=== PATIENT | female | born 1945 | race Caucasian/White ===

== ENCOUNTER 2021-04-03 12:28 | Emergency (ER) | payer MEDICARE, SELFPAY ==
--- NOTE | 2021-04-03 | ECG_ITS ---
Test Reason : STOKE Blood Pressure : / mmHG Vent. Rate : 052 BPM Atrial Rate : 052 BPM P-R Int : 234 ms QRS Dur : 070 ms QT Int : 432 ms P-R-T Axes : 060 064 065 degrees QTc Int : 401 ms Sinus bradycardia with 1st degree A-V block Otherwise normal ECG When compared with ECG of 06-JUL-2004 12:59, [place] interval has increased T wave amplitude has increased in Anterior leads Referred By: [facility] Salcedo Electronically Signed By:MAVERICK VIERA
--- NOTE | ~2021-04-03 | CT_ITS ---
EXAMINATION: CT HEAD WITHOUT CONTRAST (STROKE PROTOCOL) CLINICAL INFORMATION: Stroke protocol. Altered mental status and a few anesthesia COMPARISON: None TECHNIQUE: Contiguous axial imaging was performed from the skull base to vertex without intravenous administration of contrast. This CT examination was performed using dose optimization techniques as appropriate, variously including the following: *Automated exposure control *Adjustment of mA and/or kV according to patient size (this includes techniques or standardized protocols for targeted exams where dose is matched to indication/reason for exam; i.e. extremities or head) *Use of iterative reconstruction technique DLP: 685 mGy-cm FINDINGS: There is no intracranial hemorrhage, hematoma, or extra-axial fluid collection. The the ventricles are symmetrical but enlarged likely from volume loss. There is no hydrocephalus, edema, or mass effect. The collado-white matter differentiation appears symmetric. There is no acute infarct or mass lesion. The calvarium appears intact. There is no pneumocephalus or orbital emphysema. The visualized sinuses and middle ears and mastoid air cells show no significant mucosal thickening. There are no air-fluid levels. CT/CT head for stroke IMPRESSION: No acute intracranial process seen. This critical result was discussed with Dr. Salcedo at 12:45 PM on 04/03/2021. It was ascertained that the content and urgency of the report was understood at the time of direct communication.
[2021-04-03 12:36] VITALS: BP 110/43; PULSE 57
[2021-04-03 12:47] VITALS: BP 153/56; PULSE 52; RESP 16; TEMP 36.6; O2SAT 98; BMI 34.7
--- NOTE | 2021-04-03 12:51 | ED.AMS ---
HPI - Altered Mental Status General Chief Complaint: Altered Mental Status Stated Complaint: ams, stroke alert Time Seen by Provider: 04/03/21 12:34 Source: family and EMS Mode of arrival: EMS Limitations: altered mental status History of Present Illness HPI narrative: THIS IS A 75 YEARS OLD THE FEMALE ALF RESIDENT WITH A HISTORY OF DEMENTIA GAIT ABNORMALITY TYPE 2 DIABETES BROUGHT HERE BECAUSE OF ALTERED MENTAL STATUS/DEGREES MENTAL STATUS/POSSIBLE STROKE. THE PATIENT WAS SEEN WELL LAST TIME AROUND 08:00 AND THEN SHE WAS SENT NOW FOR FULL EVALUATION AT ARRIVAL SHE HAS A LETHARGIC OVER SHE FOLLOWS SIMPLE COMMAND THAT SHE OPENED EYES SHE RESPOND TO VOICE. complaint: altered mental status Onset (ago): hour(s) (4H) Severity: moderate Associated symptoms: denies other symptoms Related Data Allergies Allergy/AdvReac Type Severity Reaction Status Date / Time Sulfa (Sulfonamide Allergy Unknown unknown Verified 06/30/18 00:00 Antibiotics) From SULFUR-8 Allergy Unknown SWELLING Uncoded 05/22/20 14:44 Seasonal Allergy Unknown red itchy Uncoded 06/30/18 00:00 eyes sulfa Allergy Unknown Uncoded 01/09/19 00:00 Review of Systems Review of Systems: Yes all other systems are reviewed and are negative Constitutional: Constitutional: Denies fever(s) Cardiovascular: Cardiovascular: Denies chest pain Respiratory: Respiratory: Denies cough and Denies hemoptysis Gastrointestinal: Gastrointestinal: Denies abdominal pain and Denies diarrhea Genitourinary: Genitourinary: Reports no additional female genitourinary complaints Integumentary/Breasts: Skin/Breast: Reports system reviewed and no additional complaints, except as docu Neurologic: Reports system reviewed and no additional complaints, except as documented [facility] Past Medical History [facility] Narrative: HISTORY OF DEMENTIA, HYPERTENSION, HYPERLIPIDEMIA, TYPE 2 DIABETES Social History Social History Advance Directives: No Advance Directives Information Provided: Yes Physical Exam Vital Signs: Vital Signs: Last Vital Signs Temp 98 F 04/03/21 12:47 Pulse 52 04/03/21 12:47 Resp 16 04/03/21 12:47 BP 153/56 H 04/03/21 12:47 Pulse Ox 98 04/03/21 12:47 Body Mass Index 34.7 Const: Other: PATIENT IS A LETHARGIC BUT EASILY AROUSABLE SHE IS ABLE TO SQUEEZE MY HAND WHEN I ASK HER SHE RESPOND TO VOICE General: cooperative Nutritional Appearance: overweight Limitations: other limitations (DECREASED MENTAL STATUS) HENMT: Head: Yes normal to inspection Face and sinus: Yes normal facial exam Mouth: Normal oral and palatal mucosa present Neck: Neck: Yes normal visual inspection, Yes full ROM and Yes no lymphadenopathy Thyroid: Thyroid normal Chest: Chest palpation & inspection: normal inspection of the chest Resp: Effort & Inspection: normal respiratory effort Auscultation: clear to auscultation bilaterally Cardio: Jugular venous distension: no JVD Rate: regular rate Rhythm: regular rhythm GI: Palpation (GI): Soft to palpation, nontender and no guarding Neuro: Other: LETHARGIC ,RESPOND TO VOICE ,FOLLOW SIMPLE COMMAND Course Course Course Narrative: PATIENT IS DNR/DNI/DO NOT HOSPITALIZE/NO ARTIFICIAL HYDRATION/NO FEEDING TUBE. AT THIS POINT I WILL DISCHARGE THE PATIENT BACK TO THE ALF. I HAD A LONG DISCUSSION WITH THE DAUGHTER BEDSIDE SHE AGREE WITH THE PLAN. NURSE WILL CALL THE ALF ALSO AIDED REQUESTED TO DISCONTINUE OXYCODONE/OLANZAPINE AND/LYRICA. MDM - Altered Mental Status Lab Data Result diagrams: 04/03/21 13:01 04/03/21 13:01 Labs: Lab Results 04/03/21 04/03/21 04/03/21 Range/Units 12:43 13:01 13:01 WBC 6.7 (4.8-10.8) X10*3/uL RBC 3.82 L (4.20-5.50) X10*6/uL Hgb 11.0 L (12.0-16.0) g/dl Hct 36.2 L (37-47) % MCV 94.8 (80-98) fL MCH 28.8 (27.0-33.0) pg MCHC 30.4 L (31.0-35.0) g/dl RDW 13.2 (11.0-16.0) % Plt Count 146 L (160-400) X10*3/uL MPV 11.5 (9.4-12.3) fL Immature Gran % (Auto) 0.1 (0.0-0.4) % Neut % (Auto) 56.5 (45-73) % Lymph % (Auto) 31.7 (20-40) % [place] % (Auto) 9.8 (2-11) % Eos % (Auto) 1.6 (0-4) % Baso % (Auto) 0.3 (0-2) % Lymph # (Auto) 2.1 (1.2-4.9) X10*3/uL [place] # (Auto) 0.7 (0.1-1.2) X10*3/uL Eos # (Auto) 0.1 (0.0-0.4) X10*3/uL Baso # (Auto) 0.0 (0.0-0.2) X10*3/uL Abs Immat Gran (auto) 0.01 (0.00-0.03) X10*3/uL Absolute Neuts (auto) 3.8 (2.0-8.3) X10*3/uL Absolute Nucleated RBC 0.000 (0.0-0.012) X10*3/uL Nucleated RBC % (auto) 0.0 (0.0-0.2) /100WBC Whole Blood PT 13.9 H (11.1-13.5) sec Whole Blood INR 1.2 H (0.9-1.1) Sodium 142 (135-145) mmol/L Potassium 5.8 H (3.3-5.1) mmol/L Chloride 108 (96-108) mmol/L Carbon Dioxide 24 (22-29) mmol/L Anion Gap 16 (12-20) BUN 40 H (9-16) mg/dL Creatinine 1.93 H (0.5-1.4) mg/dL Estim Creat Clear Calc 29.2 Estimated GFR 25 Random Glucose 145 H (60-115) mg/dL Calcium 9.9 (8.4-10.2) mg/dL Total Bilirubin 0.3 (0.0-1.0) mg/dL AST 16 (5-31) U/L ALT 12 (0-31) U/L Alkaline Phosphatase 73 (39-117) U/L Troponin I High Sens (<3.5-17.0) ng/L Total Protein 6.8 (6.5-8.0) g/dL Albumin 3.7 (3.5-5.0) g/dL Urine Color Urine Appearance Urine pH (5.0-8.0) Ur Specific [place] (1.005-1.025) Urine Protein (NEG-TRACE) MG/DL Urine Glucose (UA) (NEG) MG/DL Urine Ketones (NEG) MG/DL Urine Blood (NEG) Urine Nitrite (NEG) Ur Leukocyte Esterase (NEG) Urine RBC (0) /HPF Urine WBC (0-4) /HPF Ur Squamous Epith Cells /LPF Urine Bacteria /LPF Hyaline Casts /LPF Granular Casts /LPF 04/03/21 04/03/21 Range/Units 13:01 13:16 WBC (4.8-10.8) X10*3/uL RBC (4.20-5.50) X10*6/uL Hgb (12.0-16.0) g/dl Hct (37-47) % MCV (80-98) fL MCH (27.0-33.0) pg MCHC (31.0-35.0) g/dl RDW (11.0-16.0) % Plt Count (160-400) X10*3/uL MPV (9.4-12.3) fL Immature Gran % (Auto) (0.0-0.4) % Neut % (Auto) (45-73) % Lymph % (Auto) (20-40) % [place] % (Auto) (2-11) % Eos % (Auto) (0-4) % Baso % (Auto) (0-2) % Lymph # (Auto) (1.2-4.9) X10*3/uL [place] # (Auto) (0.1-1.2) X10*3/uL Eos # (Auto) (0.0-0.4) X10*3/uL Baso # (Auto) (0.0-0.2) X10*3/uL Abs Immat Gran (auto) (0.00-0.03) X10*3/uL Absolute Neuts (auto) (2.0-8.3) X10*3/uL Absolute Nucleated RBC (0.0-0.012) X10*3/uL Nucleated RBC % (auto) (0.0-0.2) /100WBC Whole Blood PT (11.1-13.5) sec Whole Blood INR (0.9-1.1) Sodium (135-145) mmol/L Potassium (3.3-5.1) mmol/L Chloride (96-108) mmol/L Carbon Dioxide (22-29) mmol/L Anion Gap (12-20) BUN (9-16) mg/dL Creatinine (0.5-1.4) mg/dL Estim Creat Clear Calc Estimated GFR Random Glucose (60-115) mg/dL Calcium (8.4-10.2) mg/dL Total Bilirubin (0.0-1.0) mg/dL AST (5-31) U/L ALT (0-31) U/L Alkaline Phosphatase (39-117) U/L Troponin I High Sens 4.4 (<3.5-17.0) ng/L Total Protein (6.5-8.0) g/dL Albumin (3.5-5.0) g/dL Urine Color YELLOW Urine Appearance HAZY Urine pH 5.5 (5.0-8.0) Ur Specific [place] >= 1.030 H (1.005-1.025) Urine Protein TRACE (NEG-TRACE) MG/DL Urine Glucose (UA) NEG (NEG) MG/DL Urine Ketones 5 (NEG) MG/DL Urine Blood NEG (NEG) Urine Nitrite POS H (NEG) Ur Leukocyte Esterase NEG (NEG) Urine RBC 0 (0) /HPF Urine WBC 1-4 (0-4) /HPF Ur Squamous Epith Cells 2+ /LPF Urine Bacteria TRACE /LPF Hyaline Casts 1-4 /LPF Granular Casts 5-9 /LPF Imaging Data CT scan - head: Radiologist's impression: FINDINGS: There is no intracranial hemorrhage, hematoma, or extra-axial fluid collection.? The the ventricles are symmetrical but enlarged likely from volume loss. There is no hydrocephalus, edema, or mass effect. The coll[place]-white matter differentiation appears symmetric. There is no acute infarct or mass lesion. The calvarium appears intact. There is no pneumocephalus or orbital emphysema.? The visualized sinuses and middle ears and mastoid air cells show no significant mucosal thickening. There are no air-fluid levels. CT/CT head for stroke IMPRESSION: No acute intracranial process seen. ? This critical result was discussed with Dr. Salcedo at 12:45 PM? on 04/03/2021. It was ascertained that the content and urgency of the report was understood at the time of direct communication. Dictated By: PRANEETH HAND ECG Data ECG #1: Pacemaker model: NORMAL SINUS RHYTHM RATE OF 52 NO ISCHEMIC CHANGES
[2021-04-03 13:05] LABS: MANUAL DIFF FLAG NO
[2021-04-03] MEDS: 0.9 % Sodium Chloride 1,000 ML 999 ML IVCONT (13:10)
[2021-04-03 13:11] LABS: Basophils Percent Auto 0.3 % (0-2); Eosinophils Absolute Auto 0.1 X10*3/uL (0.0-0.4); Eosinophils Percent Auto 1.6 % (0-4); Hematocrit 36.2 % (37-47); Imm Gran Abs Auto 0.01 X10*3/uL (0.00-0.03); Imm Gran Pct Auto 0.1 % (0.0-0.4); Lymphocytes Absolute Auto 2.1 X10*3/uL (1.2-4.9); Lymphocytes Percent Auto 31.7 % (20-40); Mean Corpuscular HGB Conc 30.4 g/dl (31.0-35.0); Mean Corpuscular Hemoglobin 28.8 pg (27.0-33.0); Mean Corpuscular Volume 94.8 fL (80-98); Mean Platelet Volume 11.5 fL (9.4-12.3); Monocytes Absolute Auto 0.7 X10*3/uL (0.1-1.2); Monocytes Percent Auto 9.8 % (2-11); Neutrophils Absolute Auto 3.8 X10*3/uL (2.0-8.3); Neutrophils Percent Auto 56.5 % (45-73); Platelet Count 146 X10*3/uL (160-400); Red Blood Count 3.82 X10*6/uL (4.20-5.50); Red Cell Distribution Width 13.2 % (11.0-16.0); White Blood Count 6.7 X10*3/uL (4.8-10.8)
[2021-04-03 13:19] LABS: Prothrombin Time Whole Bld POC 13.9 sec (11.1-13.5); ~PT, ~INR - Anti Coag Clinic 1.2 (0.9-1.1)
[2021-04-03 13:24] LABS: Glucose Urine UA NEG (NEG); Leukocyte Esterase Urine NEG (NEG); Nitrite Urine POS (NEG); PH 5.5 (5.0-8.0); Specific Gravity - Urine >= 1.030 (1.005-1.025); UACC Culture Trigger YES; Urine Blood NEG (NEG); Urine Ketones 5 MG/DL (NEG); Urine Protein TRACE MG/DL (NEG-TRACE)
[2021-04-03 13:34] LABS: Appearance Urine HAZY; Color Urine YELLOW
[2021-04-03 13:36] LABS: Alanine Aminotransferase 12 U/L (0-31); Albumin Level 3.7 g/dL (3.5-5.0); Alkaline Phosphatase 73 U/L (39-117); Anion Gap 16 (12-20); Aspartate Amino Transferase 16 U/L (5-31); Bilirubin Total 0.3 mg/dL (0.0-1.0); Blood Urea Nitrogen 40 mg/dL (9-16); Calcium 9.9 mg/dL (8.4-10.2); Carbon Dioxide 24 mmol/L (22-29); Chloride 108 mmol/L (96-108); Creatinine Clr Calc Pharmacy 29.2; Estimated Glomerular Filt Rate 25; Glucose Random 145 mg/dL (60-115); Potassium 5.8 mmol/L (3.3-5.1); Sodium 142 mmol/L (135-145); Total Protein 6.8 g/dL (6.5-8.0)
[2021-04-03 13:36] LABS: Bacteria Urine TRACE /LPF; RBC Urine 0 /HPF (0); Squamous Epithelial Cell Urine 2+ /LPF; UACC CULT YES
[2021-04-03 13:42] LABS: Troponin-I High Sensitivity 4.4 ng/L (<3.5-17.0)
[2021-04-03 15:13] VITALS: BP 148/59; PULSE 55; RESP 14; TEMP 36.4; O2SAT 94
[2021-04-03 17:44] LABS: Glucose, Whole Blood 130 mg/dL (60-115)
== END 2021-04-03 15:50 | disposition skilled nursing facility (03) ==
PROVIDERS: Emergency Provider Emergency Medicine; PCP Internal Medicine
DX: R41.82 Altered mental status, unspecified (principal); F03.90 Unspecified dementia, unspecified severity, without behavioral disturbance, psychotic disturbance, mood disturbance, and anxiety; R53.83 Other fatigue; E11.9 Type 2 diabetes mellitus without complications; I10 Essential (primary) hypertension; E78.5 Hyperlipidemia, unspecified; Z66 Do not resuscitate
CPT/HCPCS: 36415; 70450; 80053; 81001; 82947; 84484; 85025; 85610; 87086; 93005; 96360; 99284

== ENCOUNTER 2021-10-28 16:07 | Emergency (ER) | payer MEDICARE, SELFPAY ==
--- NOTE | ~2021-10-28 | XR_ITS ---
EXAMINATION: XR CHEST CLINICAL INFORMATION: Weakness, change in mental status. COMPARISON: No similar priors. TECHNIQUE: AP view of the chest was obtained. FINDINGS: Low lung volumes with bronchovascular crowding. No focal airspace opacities, pleural effusions or pneumothorax. Prominent cardiomediastinal silhouette which is likely accentuated by technique. EKG wires overlie the chest. No acute osseous abnormalities. Visualized upper abdomen is within normal limits. XR/XR chest 1V IMPRESSION: No acute cardiopulmonary findings.
[2021-10-28 16:27] VITALS: BP 159/58; BP 164/62; PULSE 45; PULSE 46; RESP 16; TEMP 36.7; O2SAT 96; O2SAT 98; BMI 41.5
--- NOTE | 2021-10-28 16:38 | ED.AMS ---
HPI - Altered Mental Status General Chief Complaint: Weakness Stated Complaint: Decreased alertness Time Seen by Provider: 10/28/21 16:25 Source: patient, EMS and RN notes reviewed Mode of arrival: EMS Limitations: altered mental status (Patient has dementia, lacks insight as to why she is here) History of Present Illness HPI narrative: 76-year-old female sent in from her nursing facility for evaluation of altered mental status. The patient lacks insight as to why she is here in the emergency department and has no complaints. According to the ED nurse who got report from EMS, the patient received 12.5 mg of oxycodone and then took a nap. The patient then was found to be lethargic above her baseline after the nap. Paramedics report that the patient had a first-degree heart block with a heart rate in the 40s. The patient does take metoprolol. There was no other reported illness from the nursing facility. Initial vital signs revealed a blood pressure of 159/58, pulse of 46, respiratory rate 16, temperature 98.1 degrees and O2 saturation of 98% on room air. Related Data Previous Rx's Medication Instructions Recorded cephalexin 500 mg capsule 500 mg PO TID 7 Days #21 cap 10/28/21 Allergies Allergy/AdvReac Type Severity Reaction Status Date / Time Sulfa (Sulfonamide Allergy Unknown unknown Verified 10/28/21 16:27 Antibiotics) Review of Systems Review of Systems: Yes Unobtainable due to mental status (Baseline dementia) [facility] Past Medical History [facility] Narrative: Past medical history: Diabetes mellitus, hypertension, hyperlipidemia, dementia, schizophrenia, DNR. Social history the patient lives in [facility], she denies tobacco, alcohol and drug use. Social History Social History Advance Directives: No Physical Exam ED Vital Signs: Vital Signs - 24 hr 10/28/21 16:27 10/28/21 18:32 Temperature 98.1 F 96.7 F L Pulse Rate 46 L 44 L Respiratory Rate 16 14 Blood Pressure 159/58 H 141/55 H Pulse Oximetry 98 97 BMI result Body Mass Index 41.5 Const Other: Elderly female patient, oriented to person only, lacks insight as to why she is here in the emergency department, is pleasant and cooperative and has no complaints Orientation/consciousness: oriented to person HENNJ Head: Yes normal to inspection, Yes normocephalic and Yes atraumatic Ears: external ears normal General nose exam: Normal external nose present Face and sinus: Yes normal facial exam Mouth: Normal oral and palatal mucosa present Throat: Yes posterior oropharynx normal Eyes General: appearance normal, both eyes and all related structures Pupils: Equal, round and reactive pupils present and Pupil size comments (6 mm) bilaterally EOM: EOMs intact bilaterally Neck Neck: Yes normal visual inspection, Yes no lymphadenopathy, Yes trachea midline and Yes supple Chest Chest palpation & inspection: normal inspection of the chest and normal palpation of entire chest wall Resp Effort & Inspection: normal respiratory effort and able to speak in complete sentences Auscultation: clear to auscultation bilaterally Cardio Rate: regular rate and bradycardic Rhythm: regular rhythm Heart sounds: S1 normal heart sound present, S2 normal heart sound present and no murmurs GI Inspection: Yes normal to inspection Palpation (GI): Soft to palpation, nontender and no guarding Auscultation: normal bowel sounds General: Yes no CVA tenderness Back/Spine/Pelvis Back: no CVA tenderness Skin General skin exam: no rashes or lesions noted Neuro General: oriented to person Cranial nerves: Yes CN's II-XII intact bilaterally and Yes Equal, round and reactive pupils present Motor exam (neuro): 5/5 motor strength present throughout Extrem General: Yes normal to inspection Psych Appearance: grossly normal Speech and movement: Normal speech and movement present Affect: normal affect Attitude: cooperative Thought process: Other thought process findings present (Lacks insight as to why she is here, consistent with her dementia) Course Course Course Narrative: 76-year-old female sent to the emergency department for evaluation of lethargy after waking up from a nap. Prior to her taking a nap she did receive oxycodone 12.5 mg orally. Patient has no complaints and there was no other reported illness. At the time my evaluation she is awake and alert, oriented to person. Vital signs revealed mild hypertension with a blood pressure of 159/50 a and bradycardia with a pulse of 46. Her exam was otherwise unremarkable. I did order CBC, CMP, troponin, COVID-19 test, urinalysis by straight cath and a rectal temperature. I will also obtain a portable chest x-ray to rule out pneumonia. 1709: CBC was unremarkable. Comprehensive metabolic panel did reveal a slight elevated potassium at 5.3 and an elevated BUN of 30, this is chronic. Patient's COVID-19 test was negative. Urinalysis revealed 1+ leukocyte esterase positive nitrates. Microscopic revealed 29 WBCs 4 +bacteria 2+ squamous cells. Chest x-ray was unremarkable. COVID-19 was negative. The patient is awake and alert, she is eating dinner. Her daughter Kasey and granddaughter emboli are in the room and patient is interacting with them appropriately. At this time I suspect the patient may have been overmedicated with oxycodone, I do not think the bradycardia is the cause of her altered level of consciousness. She may have a urine infection and she was ordered to get Keflex 500 mg orally. She will be started on Keflex 500 mg 3 times a day for 7 days. The patient will be discharged back to her care facility. The family is comfortable with this plan as well. MDM - Altered Mental Status Lab Data Result diagrams: 10/28/21 17:42 10/28/21 17:43 Labs: Lab Results 10/28/21 10/28/21 10/28/21 Range/Units 17:20 17:42 17:43 WBC 6.7 (4.8-10.8) X10*3/uL RBC 3.81 L (4.20-5.50) X10*6/uL Hgb 11.1 L (12.0-16.0) g/dl Hct 35.4 L (37.0-47.0) % MCV 92.9 (80.0-98.0) fL MCH 29.1 (27.0-33.0) pg MCHC 31.4 (31.0-35.0) g/dl RDW 13.8 (11.0-16.0) % Plt Count 173 (160-400) X10*3/uL MPV 11.0 (9.4-12.3) fL Immature Gran % (Auto) 0.4 (0.0-0.4) % Neut % (Auto) 55.1 (45-73) % Lymph % (Auto) 33.9 (20-40) % [place] % (Auto) 8.8 (2-11) % Eos % (Auto) 1.5 (0-4) % Baso % (Auto) 0.3 (0-2) % Lymph # (Auto) 2.3 (1.2-4.9) X10*3/uL [place] # (Auto) 0.6 (0.1-1.2) X10*3/uL Eos # (Auto) 0.1 (0.0-0.4) X10*3/uL Baso # (Auto) 0.0 (0.0-0.2) X10*3/uL Abs Immat Gran (auto) 0.03 (0.00-0.03) X10*3/uL Absolute Neuts (auto) 3.7 (2.0-8.3) x10*3/uL Absolute Nucleated RBC 0.000 (0.0-0.012) X10*3/uL Nucleated RBC % (auto) 0.0 (0.0-0.2) /100WBC Sodium 141 (135-145) mmol/L Potassium 5.3 H (3.3-5.1) mmol/L Chloride 106 (96-108) mmol/L Carbon Dioxide 28 (22-29) mmol/L Anion Gap 12 (12-20) BUN 30 H (9-16) mg/dL Creatinine 1.33 (0.5-1.4) mg/dL Estim Creat Clear Calc 44.5 Estimated GFR 39 Random Glucose 83 (60-115) mg/dL Calcium 9.4 (8.4-10.2) mg/dL Total Bilirubin 0.3 (0.0-1.0) mg/dL AST 12 (5-31) U/L ALT 7 (0-31) U/L Alkaline Phosphatase 73 (39-117) U/L Troponin I High Sens (<3.5-17.0) ng/L Total Protein 6.6 (6.5-8.0) g/dL Albumin 3.7 (3.5-5.0) g/dL Urine Color Urine Appearance Urine pH (5.0-8.0) Ur Specific [place] (1.005-1.025) Urine Protein (NEG-TRACE) MG/DL Urine Glucose (UA) (NEG) MG/DL Urine Ketones (NEG) MG/DL Urine Blood (NEG) Urine Nitrite (NEG) Ur Leukocyte Esterase (NEG) Urine RBC (0) /HPF Urine WBC (0-4) /HPF Urine WBC Clumps Ur Squamous Epith Cells /LPF Urine Bacteria /LPF Urine Mucus /LPF COVID-19 (HOME) Negative (Negative) COVID-19 Clin Com See Note 10/28/21 10/28/21 Range/Units 17:43 18:26 WBC (4.8-10.8) X10*3/uL RBC (4.20-5.50) X10*6/uL Hgb (12.0-16.0) g/dl Hct (37.0-47.0) % MCV (80.0-98.0) fL MCH (27.0-33.0) pg MCHC (31.0-35.0) g/dl RDW (11.0-16.0) % Plt Count (160-400) X10*3/uL MPV (9.4-12.3) fL Immature Gran % (Auto) (0.0-0.4) % Neut % (Auto) (45-73) % Lymph % (Auto) (20-40) % [place] % (Auto) (2-11) % Eos % (Auto) (0-4) % Baso % (Auto) (0-2) % Lymph # (Auto) (1.2-4.9) X10*3/uL [place] # (Auto) (0.1-1.2) X10*3/uL Eos # (Auto) (0.0-0.4) X10*3/uL Baso # (Auto) (0.0-0.2) X10*3/uL Abs Immat Gran (auto) (0.00-0.03) X10*3/uL Absolute Neuts (auto) (2.0-8.3) x10*3/uL Absolute Nucleated RBC (0.0-0.012) X10*3/uL Nucleated RBC % (auto) (0.0-0.2) /100WBC Sodium (135-145) mmol/L Potassium (3.3-5.1) mmol/L Chloride (96-108) mmol/L Carbon Dioxide (22-29) mmol/L Anion Gap (12-20) BUN (9-16) mg/dL Creatinine (0.5-1.4) mg/dL Estim Creat Clear Calc Estimated GFR Random Glucose (60-115) mg/dL Calcium (8.4-10.2) mg/dL Total Bilirubin (0.0-1.0) mg/dL AST (5-31) U/L ALT (0-31) U/L Alkaline Phosphatase (39-117) U/L Troponin I High Sens 5.9 (<3.5-17.0) ng/L Total Protein (6.5-8.0) g/dL Albumin (3.5-5.0) g/dL Urine Color YELLOW Urine Appearance CLOUDY Urine pH 6.0 (5.0-8.0) Ur Specific [place] 1.020 (1.005-1.025) Urine Protein NEG (NEG-TRACE) MG/DL Urine Glucose (UA) NEG (NEG) MG/DL Urine Ketones NEG (NEG) MG/DL Urine Blood NEG (NEG) Urine Nitrite POS H (NEG) Ur Leukocyte Esterase 1+ H (NEG) Urine RBC 1-4 (0) /HPF Urine WBC 15-29 H (0-4) /HPF Urine WBC Clumps NOTED Ur Squamous Epith Cells 2+ /LPF Urine Bacteria 4+ /LPF Urine Mucus 2+ /LPF COVID-19 (HOME) (Negative) COVID-19 Clin Com Discharge Plan Discharge Clinical Impression: Acute alteration in mental status, Urinary tract infection, Bradycardia Patient Disposition: Home, Self-Care Additional Instructions: Her blood work revealed no acute significant abnormalities. COVID-19 test was negative. Chest x-ray was negative. Urinalysis was positive for leukocyte esterase and nitrates. Microscopic revealed 29 WBCs, 4+ bacteria 2+ squamous cells. The patient's altered mental status may be multifactorial. I believe that the main cause was the oxycodone that the patient received today. I am recommending that she not receive oxycodone again in the future and that her pain should be treated with Tylenol only. Patient does have a urinary tract infection and this may contributed to her altered mental status as well. She was treated with Keflex 500 mg orally here in the emergency department. She will be started on Keflex 500 mg, 1 pill 3 times a day for 7 days. The patient was found to be bradycardic however I do not think this is the cause for symptoms. If she continues to have bradycardia associated with weakness then her provider should consider discontinuing her beta-dat. Follow-up with your doctor in 2 days. Please return to the emergency department if your symptoms get worse or if you develop any symptoms that are concerning to you. Prescriptions: New cephalexin 500 mg capsule 500 mg PO TID 7 Days Qty: 21 0RF
--- NOTE | 2021-10-28 16:39 | ECG_ITS ---
Test Reason : BRADYCARDIA Blood Pressure : / mmHG Vent. Rate : 045 BPM Atrial Rate : 045 BPM P-R Int : 182 ms QRS Dur : 080 ms QT Int : 468 ms P-R-T Axes : 003 046 039 degrees QTc Int : 404 ms Sinus bradycardia Otherwise normal ECG When compared with ECG of 03-APR-2021 12:51, PA interval has decreased Referred By: Chuy Diamond Electronically Signed By:MAVERICK VIERA
[2021-10-28 17:47] LABS: MANUAL DIFF FLAG NO
[2021-10-28 17:59] LABS: COVID-19 Test Negative (Negative)
[2021-10-28 18:03] LABS: Alanine Aminotransferase 7 U/L (0-31); Albumin Level 3.7 g/dL (3.5-5.0); Alkaline Phosphatase 73 U/L (39-117); Anion Gap 12 (12-20); Aspartate Amino Transferase 12 U/L (5-31); Bilirubin Total 0.3 mg/dL (0.0-1.0); Blood Urea Nitrogen 30 mg/dL (9-16); Calcium 9.4 mg/dL (8.4-10.2); Carbon Dioxide 28 mmol/L (22-29); Chloride 106 mmol/L (96-108); Creatinine Clr Calc Pharmacy 44.5; Estimated Glomerular Filt Rate 39; Glucose Random 83 mg/dL (60-115); Potassium 5.3 mmol/L (3.3-5.1); Sodium 141 mmol/L (135-145); Total Protein 6.6 g/dL (6.5-8.0)
[2021-10-28 18:09] LABS: Troponin-I High Sensitivity 5.9 ng/L (<3.5-17.0)
[2021-10-28 18:10] LABS: Basophils Percent Auto 0.3 % (0-2); Eosinophils Absolute Auto 0.1 X10*3/uL (0.0-0.4); Eosinophils Percent Auto 1.5 % (0-4); Hematocrit 35.4 % (37.0-47.0); Hemoglobin 11.1 g/dl (12.0-16.0); Imm Gran Abs Auto 0.03 X10*3/uL (0.00-0.03); Imm Gran Pct Auto 0.4 % (0.0-0.4); Lymphocytes Absolute Auto 2.3 X10*3/uL (1.2-4.9); Lymphocytes Percent Auto 33.9 % (20-40); Mean Corpuscular HGB Conc 31.4 g/dl (31.0-35.0); Mean Corpuscular Hemoglobin 29.1 pg (27.0-33.0); Mean Corpuscular Volume 92.9 fL (80.0-98.0); Monocytes Absolute Auto 0.6 X10*3/uL (0.1-1.2); Monocytes Percent Auto 8.8 % (2-11); Neutrophils Absolute Auto 3.7 x10*3/uL (2.0-8.3); Neutrophils Percent Auto 55.1 % (45-73); Platelet Count 173 X10*3/uL (160-400); Red Blood Count 3.81 X10*6/uL (4.20-5.50); Red Cell Distribution Width 13.8 % (11.0-16.0); White Blood Count 6.7 X10*3/uL (4.8-10.8)
[2021-10-28 18:32] VITALS: BP 141/55; PULSE 44; RESP 14; TEMP 35.9; O2SAT 97
[2021-10-28 18:52] LABS: Appearance Urine CLOUDY; Color Urine YELLOW; Glucose Urine UA NEG (NEG); Leukocyte Esterase Urine 1+ (NEG); Nitrite Urine POS (NEG); UACC Culture Trigger YES; Urine Blood NEG (NEG); Urine Ketones NEG (NEG); Urine Protein NEG (NEG-TRACE)
[2021-10-28 19:05] LABS: Bacteria Urine 4+ /LPF; Mucus Urine 2+ /LPF; Squamous Epithelial Cell Urine 2+ /LPF; WBC Clumps Urine NOTED
[2021-10-28] MEDS: cephALEXin 500 MG CAPSULE PO (20:20)
--- NOTE | 2021-10-28 20:51 | PC.NURSE ---
This RN spoke to pt daughter via phone re: request that pt be transferred to different facility. Daughter states that [facility] has accepted pt and requesting pt stay in this ED overnight rather than returning to previous facility. Explained that logistically this is not a possibility, daughter frustrated but verbalizes understanding. Josie notified pt will return approx 2300.
== END 2021-10-28 22:51 | disposition home or self-care (01) ==
LOC: HO.ED 19:35
PROVIDERS: Emergency Provider Emergency Medicine Emergency Medical Services
DX: R41.82 Altered mental status, unspecified (principal); N39.0 Urinary tract infection, site not specified; R00.1 Bradycardia, unspecified; Z20.822 Contact with and (suspected) exposure to COVID-19; E11.9 Type 2 diabetes mellitus without complications; I10 Essential (primary) hypertension; E78.5 Hyperlipidemia, unspecified
CPT/HCPCS: 71045; 80053; 81001; 84484; 85025; 87086; 87088; 87186; 87635; 93005; 99284